=== PATIENT | male | born 1965 | race Caucasian/White ===

== ENCOUNTER 2018-12-12 07:58 | Emergency (ER) | payer MEDICAID ==
[~2018-12-12] VITALS: Ht 172.7 cm; Wt 65.0 kg
[2018-12-12 09:07] LABS: CHLORIDE 92 mEq/L (98-107)
[2018-12-12 09:08] LABS: BASOPHILS % 0.6 % (0.0-2.0); EOSINOPHILS % 2.4 % (0.0-5.0); HEMATOCRIT. 39.9 % (42.0-52.0); LYMPHOCYTES % 16.2 % (20.0-50.0); MEAN CORPUSCULAR HEMOGLOBIN 29.4 pg (28.0-32.0); MEAN CORPUSCULAR VOLUME 83.8 fL (80.0-94.0); MONOCYTES % 8.1 % (2.0-8.0); NEUTROPHILS % 72.7 % (40.0-76.0); PLATELET 339 x1000/uL (130-400); RED BLOOD CELL COUNT 4.75 mill/uL (4.7-6.1); RED CELL DISTRIBUTION WIDTH 15.8 % (11.6-14.6)
[2018-12-12 09:11] LABS: ETHANOL BLOOD < 10 mg/dL
[2018-12-12 09:40] LABS: METHADONE URINE SCREEN NEGATIVE (NEGATIVE); OPIATES URINE SCREEN NEGATIVE (NEGATIVE); PHENCYCLIDINE URINE SCREEN NEGATIVE (NEGATIVE)
[2018-12-12 09:41] LABS: *BARBITURATES SCREEN URINE PRESUMTIVE POSITIVE (NEGATIVE)
[2018-12-12 09:42] LABS: *AMPHETAMINES SCREEN URINE NEGATIVE (NEGATIVE); *COCAINE SCREEN URINE NEGATIVE (NEGATIVE)
[2018-12-12 09:43] LABS: *BENZODIAZEPINES SCREEN URINE NEGATIVE (NEGATIVE); CANNABINOID URINE SCREEN NEGATIVE (NEGATIVE)
[2018-12-12] MEDS ORDERED: LORAZEPAM 2MG/ML CPJ ONE (11:54)
[2018-12-12] MEDS ORDERED: LEVETIRACETAM 500MG PREMIX 100 ML IV ONE (14:15)
[2018-12-12 15:22] LABS: CARBAMAZEPINE < 0.5 ug/mL (4-12)
[2018-12-12 19:03] VITALS: BP 136/81
== END 2018-12-12 19:36 | disposition short-term general hospital (02) ==
LOC: ER 07:58 → CANBEDREQ 15:56 → ER 19:36
DX: G40.309 Generalized idiopathic epilepsy and epileptic syndromes, not intractable, without status epilepticus (principal); F10.10 Alcohol abuse, uncomplicated; Y90.0 Blood alcohol level of less than 20 mg/100 ml; F13.10 Sedative, hypnotic or anxiolytic abuse, uncomplicated; I10 Essential (primary) hypertension
CPT/HCPCS: 36415; 70450; 80048; 80156; 80165; 80185; 80305; 80320; 85025; 96365; 99285; J1953; J2060; G0480

== ENCOUNTER 2024-12-29 20:45 | Emergency (ER) | payer MEDICAID ==
[~2024-12-29] VITALS: Ht 170.2 cm; Wt 70.0 kg
[~2024-12-29 20:45] MED LIST: INSU100V43 SQ; LEVE100023 PO; LEVO330T2 MT; LEVO330T6 PO; PHEN100C4 MT; RISP1 MT; SUCR1TAB MT; TRAZ-251 MT; VALP250S22 PO
[2024-12-29 20:50] VITALS: O2SAT 99
[2024-12-29] MEDS: SODIUM CHLORIDE 0.9% 1,000 ML IV ONE (21:45)
[2024-12-29 22:45] LABS: BASOPHILS % 1.4 % (0.0-2.0); EOSINOPHILS % 0.7 % (0.0-5.0); HEMATOCRIT. 33.6 % (42.0-52.0); HEMOGLOBIN. 11.8 g/dL (14.0-18.0); LYMPHOCYTES % 20.5 % (20.0-50.0); MEAN PLATELET VOLUME 6.9 fl (7.4-10.4); MONOCYTES % 7.5 % (2.0-8.0); NEUTROPHILS % 69.9 % (40.0-76.0); PLATELET 475 x1000/uL (130-400); RED BLOOD CELL COUNT 4.07 mill/uL (4.7-6.1); RED CELL DISTRIBUTION WIDTH 14.5 % (11.6-14.6)
[2024-12-29 23:01] LABS: CREATININE 0.7 mg/dL (0.6-1.3); UREA NITROGEN BLOOD 9 mg/dL (9-23)
[2024-12-29 23:02] LABS: PHENYTOIN 3.7 ug/mL (10-20); TROPONIN I HIGH SENSITIVITY < 4 ng/L (3.0-53); VALPROIC ACID 5.5 ug/mL (50-100)
[2024-12-29] MEDS: LEVETIRACETAM 500MG PREMIX 100 ML IV ONE (23:29)
[2024-12-30] MEDS: PHENYTOIN SODIUM EXTENDED 100MG CAPSULE PO NR (00:15)
[2024-12-30 01:02] VITALS: TEMP 36.7
[2024-12-30 03:07] VITALS: BP 130/82; PULSE 77; RESP 12; O2SAT 94
== END 2024-12-30 03:12 ==
LOC: ER 20:45
DX: G40.909 Epilepsy, unspecified, not intractable, without status epilepticus (principal); I10 Essential (primary) hypertension; D64.9 Anemia, unspecified; F20.9 Schizophrenia, unspecified; J44.9 Chronic obstructive pulmonary disease, unspecified; F41.9 Anxiety disorder, unspecified; Z79.899 Other long term (current) drug therapy; Z86.73 Personal history of transient ischemic attack (TIA), and cerebral infarction without residual deficits
CPT/HCPCS: 80048; 80320; 80185; 80165; 85025; 84484; 36415; 71045; 70450; 93005; 96361; 96365; 99285; J1953; J7030; G0480

== ENCOUNTER 2025-03-15 09:18 | Emergency (ER) | payer MEDICAID ==
[~2025-03-15] VITALS: Ht 180.3 cm; Wt 91.0 kg
[2025-03-15 09:21] VITALS: O2SAT 99
[2025-03-15 09:46] LABS: BASOPHILS % 0.5 % (0.0-2.0); EOSINOPHILS % 1.7 % (0.0-5.0); HEMATOCRIT. 36.1 % (42.0-52.0); HEMOGLOBIN. 12.7 g/dL (14.0-18.0); LYMPHOCYTES % 27.0 % (20.0-50.0); MEAN PLATELET VOLUME 7.1 fl (7.4-10.4); MONOCYTES % 9.5 % (2.0-8.0); NEUTROPHILS % 61.3 % (40.0-76.0); PLATELET 204 x1000/uL (130-400); RED BLOOD CELL COUNT 4.27 mill/uL (4.7-6.1); RED CELL DISTRIBUTION WIDTH 14.4 % (11.6-14.6)
[2025-03-15] MEDS: LEVETIRACETAM 1000MG PREMIX 100 ML IV ONE (09:56)
[2025-03-15] MEDS: VALPROIC ACID 250MG CAPSULE PO ONE (09:56)
[2025-03-15] MEDS: PHENYTOIN SODIUM 100MG/2ML VIAL IV ONE (09:56)
[2025-03-15 09:59] LABS: INR 1.0
[2025-03-15 10:00] LABS: CREATININE 0.6 mg/dL (0.6-1.3); ETHANOL BLOOD < 10 mg/dL (<10); UREA NITROGEN BLOOD 5 mg/dL (9-23)
[2025-03-15 10:01] LABS: PHENYTOIN 7.3 ug/mL (10-20); PROTEIN TOTAL 7.4 g/dL (6.0-8.3); VALPROIC ACID 37.3 ug/mL (50-100)
[2025-03-15 10:02] LABS: ASPARTATE AMINOTRANSFERASE 20 IU/L (<34); BILIRUBIN DIRECT 0.1 mg/dL (<=3.0); BILIRUBIN TOTAL 0.4 mg/dL (0.1-1.0); TROPONIN I HIGH SENSITIVITY < 4 ng/L (3.0-53)
[2025-03-15 12:58] LABS: CLARITY URINE CLEAR (CLEAR); COLOR URINE YELLOW (YELLOW); GLUCOSE URINE NEGATIVE (NEGATIVE); KETONES URINE NEGATIVE (NEGATIVE); LEUKOCYTE ESTERASE URINE 3+ (NEGATIVE); NITRITE URINE POSITIVE (NEGATIVE); OCCULT BLOOD URINE TRACE (NEGATIVE); PH URINE 7.5 (4.5-8.0); PROTEIN URINE NEGATIVE (NEGATIVE); SPECIFIC GRAVITY URINE 1.009 (1.005-1.030); UROBILINOGEN URINE 0.2 E.U./dL (0.2-1.0)
[2025-03-15 13:12] LABS: BACTERIA URINE 2+; RBC URINE 0-2 /hpf (0-2); SQUAMOUS EPITHELIAL CELL URINE RARE /lpf (RARE/1+); WBC URINE 25-50 /hpf (0-2); YEAST URINE NONE SEEN
[2025-03-15 13:17] LABS: TROPONIN I HIGH SENSITIVITY < 4 ng/L (3.0-53)
[2025-03-15] MEDS: CEFTRIAXONE 1GM/50ML 50 ML IV ONE (13:31)
[2025-03-15 14:06] LABS: *AMPHETAMINES SCREEN URINE NEGATIVE (NEGATIVE)
[2025-03-15 14:07] LABS: *BARBITURATES SCREEN URINE NEGATIVE (NEGATIVE); *BENZODIAZEPINES SCREEN URINE NEGATIVE (NEGATIVE); *COCAINE SCREEN URINE NEGATIVE (NEGATIVE); CANNABINOID URINE SCREEN NEGATIVE (NEGATIVE); ECSTASY MDMA SCREEN URINE NEGATIVE (NEGATIVE); METHADONE URINE SCREEN NEGATIVE (NEGATIVE); OPIATES URINE SCREEN NEGATIVE (NEGATIVE); PHENCYCLIDINE URINE SCREEN NEGATIVE (NEGATIVE)
[2025-03-15 14:11] LABS: INFLUENZA TYPE A Presumptive Negative (Pres. Neg.); INFLUENZA TYPE B Presumptive Negative (Pres. Neg.)
[2025-03-15 14:12] LABS: RESPIRATORY SYNCYTIAL VIRUS Not Detected (Not Detectd)
[2025-03-15] MEDS ORDERED: CEFP200T13 MT (14:23)
[2025-03-15 19:06] VITALS: BP 128/77; PULSE 78; RESP 18; TEMP 37; O2SAT 96
== END 2025-03-15 19:16 ==
LOC: ER 09:18 → CANBEDREQ 14:37 → ER 19:16
DX: R56.9 Unspecified convulsions (principal); N39.0 Urinary tract infection, site not specified; E11.9 Type 2 diabetes mellitus without complications; F20.9 Schizophrenia, unspecified; F32.A Depression, unspecified; F41.9 Anxiety disorder, unspecified; J44.9 Chronic obstructive pulmonary disease, unspecified; I10 Essential (primary) hypertension; Z86.73 Personal history of transient ischemic attack (TIA), and cerebral infarction without residual deficits; Z79.899 Other long term (current) drug therapy; Z87.440 Personal history of urinary (tract) infections; Z93.3 Colostomy status; Z79.4 Long term (current) use of insulin
CPT/HCPCS: 80076; 80305; 80048; 81003; 80320; 80185; 83735; 80165; 85025; 85610; 87420; 87086; 84484; 87804 ×2; 36415; 71045; 70450; 93005; 96365; 96375; 99291; 82542; J1953; J0696; J1165; Z7610; G0480